=== PATIENT | male | born 1935 | race Caucasian/White ===

== ENCOUNTER → 2016-05-16 | Outpatient (CLI) | payer OTHER | LOC: MMPC 11:11 | PROVIDERS: ATTEND Surgery | DX: K22.2 Esophageal obstruction (principal); Z09 Encounter for follow-up examination after completed treatment for conditions other than malignant neoplasm ==

== ENCOUNTER 2016-09-15 18:10 | Emergency (ER) | payer OTHER ==
[2016-09-15 18:37] VITALS: RESP 20; TEMP 98.2
[2016-09-15 19:39] LABS: BILIRUBIN,URINE NEGATIVE (NEG); COLOR,URINE YELLOW; GLUCOSE, URINE (UA) 250 mg/dL (NEG); NITRATE,URINE NEGATIVE (NEG); OCCULT BLOOD,URINE Trace-lysed (NEG); PROTEIN,URINE TRACE mg/dl (NEG)
[2016-09-15 19:45] LABS: CLARITY,URINE CLOUDY (CLEAR)
[2016-09-15 19:46] LABS: BACTERIA,URINE MANY; SQUAMOUS EPITHELIAL CELL,UR RARE; URINE SAMPLE TYPE CLEAN CATCH URINE; WBC,URINE 40-50
[2016-09-15 20:38] LABS: BASOPHILS # (AUTO) 0.05 10*3/UL; BASOPHILS % (AUTO) 0.8 % (0-1); EOSINOPHILS # (AUTO) 0.12 10*3/UL; EOSINOPHILS % (AUTO) 1.9 % (0-8); HEMATOCRIT 36.2 % (42.0-52.0); HEMOGLOBIN 12.1 g/dL (14.0-18.0); LYMPHOCYTES # (AUTO) 1.17 10*3/uL; MEAN CORPUSCULAR HEMOGLOBIN 31.8 PG (27-31); MEAN CORPUSCULAR HGB CONC 33.4 g/dL (33-37); MEAN CORPUSCULAR VOLUME 95.3 FL (80-90); MEAN PLATELET VOLUME 11.1 FL (7.4-12.2); MONOCYTES # (AUTO) 0.97 10*3/UL (0.3-0.8); MONOCYTES % (AUTO) 15.3 % (5-15); NEUTROPHILS # (AUTO) 4.01 10*3/UL; NEUTROPHILS % (AUTO) 63.3 % (50-80)
[2016-09-15 20:45] LABS: PLATELET MORPHOLOGY COMMENT NORMAL MORPHOLOGY (NORM); RBC MORPHOLOGY COMMENT NORMAL MORPHOLOGY (NORM); WBC MORPHOLOGY COMMENT NORMAL MORPHOLOGY (NORM)
[2016-09-15 20:47] LABS: BUN/CREATININE RATIO 18.46 (6-20); CALCIUM 8.7 mg/dL (8.7-10.7); SERUM ALBUMIN 3.3 g/dL (3.5-4.8)
--- NOTE | 2016-09-15 22:17 | DI ---
CT ABD W/CN AND PELVIS W/CN,09/15/2016 8:55 PM: Clinical History: Back pain with pyuria. Previous Exam: None at this facility. Findings: Multiple helically acquired CT images are obtained through the abdomen and pelvis following the admin istration of 75 cc of Isovue 300, and demonstrate diffuse peripheral vascular calcifications. There is a right lower lobe pneumonia with a right parapneumonic effusion. There is a small amount of subsegmental atelectasis in the left lung base as well. The kidneys demonstrate mild renal cortical thinning without hydronephrosis nor nephrolithiasis. Ther e is prominence of the prostate. The urinary bladder is unremarkable. There is no free air nor free fluid. There is no mesenteric or retroperitoneal lymphadenopathy. Large and small bowel loops are grossly normal. Diffuse degenerative changes of the spine are seen to include fusion at multiple levels which may rep resent ankylosing spondylitis. There are some mild degenerative changes of sacroiliac joints as well. Impression: 1. Right lower lobe pneumonia with a parapneumonic effusion on the right. This is a frequent cause of back pain, but does not explain pyuria. 2. No evidence of renal abscess nor CT evidence of pyelonephritis.
--- NOTE | 2016-09-15 22:23 | DI ---
XR L-SPINE 2-3 VW,09/15/2016 6:50 PM: Clinical History: Left low back pain. Previous Exam: March 24, 2008 Findings: 3 views of the lumbar spine are obtained, and demonstrate stable diffuse degenerative changes with mu ltilevel ankylosis. There is mild SI joint arthropathy. Diffuse degenerative changes of the hips are seen There is a new metallic density overlying the lower abdomen. There is blunting of the right costophre erica angle. No pathologic calcifications are seen. Impression: Stable ankylosis throughout the lumbar spine with some increasing facet arthropathy. Blunting of the right costophrenic angle.
[2016-09-15] MEDS ORDERED: LEVOFLOXACIN 500 MG TABLET PO ONE (22:30)
--- NOTE | 2016-09-16 05:52 | PDOC ---
Back Pain / Injury HPI - General Chief Complaint: Neck / Back Complaint Stated Complaint: LEFT BACK PAIN X 3 DAYS Date Seen by Provider: 09/15/16 Time Seen by Provider: 18:35 Source: Patient Exam Limitations: POSITIVE: No limitations Nurse's Notes Reviewed & Considered: Yes - History of Present Illness Initial Comments: The patient is an 81-year-old male. He presents to the emergency room with a chief complaint of left lower paralumbar back pain radiating into his left buttock. He states his pain is exacerbated by bending and by walking. He states he had a similar episode 3 years ago. He states he has in the past had a "kidney infection", and is concerned that his present symptoms might be related to his kidneys. He has a history of prostatic enlargement. No evidence of recent trauma. No hematuria or dysuria. No fevers or chills. Body Location Affected: REPORTS: Back Timing: REPORTS: Gradual, Getting Worse Duration: >24 hours (3 days, approximately) Severity: Moderate Quality: REPORTS: "Pain" Context: REPORTS: Standing, Activity, Lifting (Exacerbated by lifting, bending, turning and walking), Turning, Bending. DENIES: Sitting, Emotional stress, Coughing, Out of Country Travel, Bad Food, Recent Trauma, Recent Surgery, Sleep , Rest, Fall, Near Fall Location at Time of Onset: REPORTS: Home Modifying Factors: improves with: Movement, Walking. worse with: Nothing, Analgesics, Antacids, Breathing, Coughing, Defecating, Vomiting, Eating, Exercise, Lying down, Urinating, Palpation, Rest, Upright Position, Remaining Still, Other Associated Symptoms: REPORTS: Back pain. DENIES: Bloody Emesis, Chest pain, Coffee Grounds Emesis, Chills, Diaphoresis, Fever, Fatigue, Headache, Heartburn , Loss of Appetite, Nausea, Rash, Shortness of breath, Swelling/mass in abdomen , Syncope, Testicular Pain, Vomiting, Weakness, Grossly Bloody Diarrhea, Constipation, Diarrhea, Dysuria, Incontinent Stool, Incontinent Urine, Mucous Diarrhea, Difficulty Walking, Numbness Similar Symptoms Previously: Yes (as above) Recent Care Received: REPORTS: Denies Any Prior Injuries Related to Current Complaint?: No - Patient Home Medications Home Medications: Home Medications Aspirin [Aspir 81] 81 mg ORAL QD tab 08/07/14 Tamsulosin HCl 0.4 mg PO QHS #90 cap 12/23/15 Finasteride 5 mg PO DAILY #90 tab 12/25/15 Atorvastatin Calcium 1 tab PO QD #90 tab 04/20/16 Sitagliptin Phos/Metformin HCl [Janumet 50-1,000 mg Tablet] 1 tab PO QD tab Esomeprazole Magnesium [Nexium] 40 mg PO DAILY #14 capsule. 04/28/16 Levofloxacin [Levaquin] 500 mg PO DAILY #9 tablet 09/15/16 - Patient Allergies Allergies/Adverse Reactions: Allergies Allergy/AdvReac Type Severity Reaction Status Date / Time beer Allergy Mild RASH Uncoded 09/15/16 18:26 Past Medical History - heen HEENT History: Denies History, Dentures/Partials Cardiovascular History: Hyperlipidemia Additional Cardiovasular History: CABG 2 VESSEL 2012 Respiratory History: Denies History Gastrointestinal History: GERD Additional Gastrointestinal History: ESOPHAGEAL STRICTURES Additional Genitourinary History: BPH Endocrine History: Type 2 Diabetes (oral) Musculoskeletal History: Back Injury, Osteoarthritis Prosthesis or Implant: No Neurological History: Dementia, Alzheimer's Blood Disorders: Denies History Psychiatric History: Depression History of Sexually Transmitted Diseases: No Male Reproductive History: Denies History In Past Year Been Physically Harmed or Verbally Threatened: No History of MDRO: No History of Other Communicable Diseases: No Tobacco Use: Never Smoker Alcohol Use: None Substance Use Type: None Previous Surgical History: Yes Type / Date of Surgery: COLONOSCOPY/ CABG 2 VESSEL 2014/ EGD WITH DILATION/ LEFT LEG ORIF/ VASECTOMY Anesthesia Reactions: No Malignant Hyperthermia: No Significant Family History: Cancer Past Medical History Reviewed: Reviewed - No Changes ROS - Limitations ROS Limitations: No Limitations Constitution: REPORTS: Denies Symptoms Cardiovascular: REPORTS: Denies Cardiac Symptoms Respiratory: REPORTS: Denies Resp Symptoms Neurological: REPORTS: Denies Neuro Symptoms Gastrointestinal: REPORTS: Denies GI Symptoms Endocrine: REPORTS: Denies Symptoms Musculoskeletal: REPORTS: Back Pain Genitourinary: REPORTS: Difficulty Urinating (Chronically due to prostatic hypertrophy) Eyes: REPORTS: Denies Symptoms ENT: REPORTS: Denies Symptoms Skin: REPORTS: Denies Skin Symptoms Lympathic: REPORTS: Denies Lympathic Symptoms Immunologic: POSITIVE: Denies Symptoms Psychiatric: POSITIVE: Denies Psych Symptoms Back Physical Assessment - General Appearance General Appearance: REPORTS: Alert, Cooperative, No Acute Distress, No Evidence of Trauma - HEENT HEENT: POSITIVE: Head Inspection Nml, Eyes Inspection Nml, Ears Inspection Nml, Nose Inspection Nml, Oral/Dental Inspect. Nml, Pharynx Inspect. Nml, PERRL, EOMI - Pupil Size Pupil Size: 3 mm: Bilateral - Neck Neck: POSITIVE: Non Tender, Painless ROM, Trachea Midline, Nexus Criteria Negative - Respiratory / CVS Respiratory / CVS: POSITIVE: Chest Non Tender, No Ecchymosis, Breath Sounds Normal, No Respiratory Distress, Heart Sounds Normal, Regular Rate/Rhythm - Abdomen Abdomen: Soft: (All Quadrants), Normal Bowel Sounds: (All Quadrants), Denies Tenderness: (All Quadrants), No Splenomegaly: (All Quadrants), No Hepatomegaly: (All Quadrants), No Guarding: (All Quadrants), No Rebound: (All Quadrants), No Palpable Pulse: (All Quadrants), No Palpabale Mass: (All Quadrants), No Distention: (All Quadrants), No Rigidity: (All Quadrants) - Back Back: REPORTS: No Vertebral Tenderness, Limited ROM, See Diagram. DENIES: No CVA Tenderness, Non Tender (Some tenderness on palpation over left lower paralumbar area and left hip), Painless ROM (Bending produces pain left paralumbar area), Vertebral Pt. Tenderness, CVA Tenderness (R), CVA Tenderness ( L), Muscle Spasm - Skin Skin: REPORTS: Intact, Normal For Race, Warm, Dry, No Rash - Extremities Extremity Assessment: Non-Tender: (ALL), Normal ROM: (ALL), No Edema: (ALL), Normal Inspection: (ALL), No Swelling: (ALL) Musculoskeletal: REPORTS: Back Pain Peripheral Pulses: Radial (R): 2+, Radial (L): 2+, Dorsalis-pedis (R): 2+, Dorsalis-pedis (L): 2+ - Neurological / Psychological Neuro / Psych: POSITIVE: Oriented X3, die baker Normal As Tested, Motor Normal, Sensation Normal, Mood Appropriate, Affect Appropriate, Reflexes Normal Reflexes: Patellar (R): 2+, Patellar (L): 2+ Images - Complete Complete: 1 - Area of described pain Back Progress - Results Reviewed by me Xrays/CTs/US Reviewed: Yes Discussed with Radiologist: Yes Radiology Findings: CT scan abdomen and pelvis shows degenerative changes in the lumbar spine; no hydronephrosis or stones or other intra-abdominal or pelvic pathology. Bladder scan shows post void residual of 160 mL. Lab Results Reviewed: Yes (some white blood cells and urinalysis) Lab Results:: Laboratory Results 09/15/16 09/15/16 Range/Units 18:49 20:05 WBC 6.33 (4.8-10.8) 10^3/uL RBC 3.80 L (4.70-6.10) 10^6/uL Hgb 12.1 L (14.0-18.0) g/dL Hct 36.2 L (42.0-52.0) % MCV 95.3 H (80-90) FL MCH 31.8 H (27-31) PG MCHC 33.4 (33-37) g/dL RDW Std Deviation 43.7 (39-50) fL RDW Coeff of Raul 13.1 (11.5-14.5) % Plt Count 177 (140-350) 10*3/uL MPV 11.1 (7.4-12.2) FL Immature Gran % (Auto) 0.2 (0-5) % Neut % (Auto) 63.3 (50-80) % Lymph % (Auto) 18.5 (10-50) % [place] % (Auto) 15.3 H (5-15) % Eos % (Auto) 1.9 (0-8) % Baso % (Auto) 0.8 (0-1) % Immature Gran # (Auto) 0.01 10*3/UL Neut # (Auto) 4.01 10*3/UL Lymph # (Auto) 1.17 10*3/uL [place] # (Auto) 0.97 H (0.3-0.8) 10*3/UL Eos # (Auto) 0.12 10*3/UL Baso # (Auto) 0.05 10*3/UL WBC Morphology Comment Normal morphology (NORM) Plt Morphology Comment Normal morphology (NORM) RBC Morph Comment Normal morphology (NORM) Sodium 139 (135-145) meq/L Potassium 4.2 (3.8-5.2) meq/L Chloride 104 (98-112) meq/L Carbon Dioxide 26 (23-33) meq/L Anion Gap 9 (5-20) BUN 24 H (7-22) mg/dL Creatinine 1.3 (0.70-1.50) mg/dL Estimated GFR (>60 ml/min/1.73m(2)) BUN/Creatinine Ratio 18.46 (6-20) Glucose 148 H (78-110) mg/dL Calculated Osmolality 294.0 H (267-292) mOsm/kg Calcium 8.7 (8.7-10.7) mg/dL Total Bilirubin 0.6 (0.3-1.2) mg/dL AST 20 L (21-57) IU/L ALT 36 (21-72) IU/L Alkaline Phosphatase 83 (38-126) IU/L Total Protein 6.8 (6.1-8.0) g/dL Albumin 3.3 L (3.5-4.8) g/dL Globulin 3.5 (2.50-4.10) g/dL Albumin/Globulin Ratio 0.90 L (1.3-2.0) mg/g Ur Collection Type Clean catch urine Urine Color Yellow Urine Clarity Cloudy (CLEAR) Urine pH 5.0 (5.0-8.5) Ur Specific [place] 1.015 (1.005-1.030) Urine Protein Trace (NEG) mg/dl Urine Glucose (UA) 250 (NEG) mg/dL Urine Ketones Trace (NEG) Urine Occult Blood Trace-lysed H (NEG) Urine Nitrate Negative (NEG) Urine Bilirubin Negative (NEG) Urine Urobilinogen 1.0 (0.2) EU/dL Ur Leukocyte Esterase Moderate (NEG) Urine RBC 3-4 (NONE) /hpf Urine WBC 40-50 (NONE) Ur Squamous Epith Cells Rare (NONE) Ur Renal Epithelial Cell None (NONE) Urine Crystals None Urine Bacteria Many (NONE) Urine Casts None (NONE) Urine Mucus None (NONE) Urine Trichomonas None (NONE) Urine Yeast None (NONE) - Patient's Progress Pain Medication Addressed: POSITIVE: Yes (Recommended Tylenol) School/Work Release Addressed: POSITIVE: Not Applicable Re-Examine Time: 22:25 Re-Examine Comment: Advised patient that I believe his back complaints or musculoskeletal. No evidence of renal problems, although the patient does have some white blood cells in his urine, which is likely secondary to his prostatic hypertrophy with possible cystitis. Status: POSITIVE: Unchanged, Re-Examined - Consult Counseled: POSITIVE: Patient, RE: Lab Results, RE: Radiology Results, RE: DX, RE : Need for F/U Patient Care Time - Estimated PCT Patient Care Time (In Minutes): 50 Vital Signs - VS Reviewed Vital Signs Reviewed: Yes Discharge Clinical Impression: Acute low back pain, Sciatica associated with disorder of lumbar spine, UTI ( urinary tract infection) Discharge Disposition: Discharged to Home Condition: Stable Prescriptions / Orders: Levofloxacin [Levaquin] 500 mg PO DAILY #9 tablet Patient Instructions Given at Discharge: Urinary Tract Infection in Men (ED), Low Back Strain (ED) Additional Instructions: I believe you have a bladder infection. Your back pain, I believe, is not coming from a kidney infection, but rather from degenerative joint disease in the lower back. Please take Levaquin, one daily until gone. Tylenol for your back discomfort. Follow-up with your primary care provider. Return here anytime if condition worsens in any way. Follow Up With: OMERO ORNELAS [Primary Care Provider] - (Instructions as above. Follow-up with your primary care provider. Return here anytime if condition worsens in any way.)
== END 2016-09-15 22:39 | disposition home or self-care (01) ==
LOC: ER 18:10
DX: N40.1 Benign prostatic hyperplasia with lower urinary tract symptoms (principal); M51.17 Intervertebral disc disorders with radiculopathy, lumbosacral region; M54.5 Low back pain; E11.9 Type 2 diabetes mellitus without complications
CPT/HCPCS: 72100; 74177; 80053; 81001; 85025; 87077; 87088; 87186; 99283

== ENCOUNTER → 2016-09-22 | Outpatient (CLI) | payer OTHER | LOC: MMPC 09:00 | PROVIDERS: ATTEND Family Medicine | DX: M54.5 Low back pain (principal); Z87.440 Personal history of urinary (tract) infections; Z87.01 Personal history of pneumonia (recurrent) | CPT/HCPCS: 99214; G0463 ==

== ENCOUNTER 2018-05-20 16:40 | Observation (INO) ==
[2018-05-20] MEDS ORDERED: LORazepam 2 MG/1 ML VIAL IVP ONE (17:07)
[2018-05-20] MEDS ORDERED: ONDANSETRON 4 MG/2 ML VIAL IVP ONE (17:07)
[2018-05-20] MEDS ORDERED: Sodium Chloride 0.9% 1,000 ML PRIMARY IV ONE (17:07)
[2018-05-20] MEDS ORDERED: Metoclopramide Inj 10 MG/2 ML VIAL IVP ONE (17:07)
[2018-05-20] MEDS ORDERED: GLUCAGON EMERGENCY KIT 1 MG KIT IVP ONE (17:07)
[2018-05-20 17:13] LABS: BASOPHILS # (AUTO) 0.03 10*3/UL; BASOPHILS % (AUTO) 0.4 % (0-1); EOSINOPHILS # (AUTO) 0.09 10*3/UL; EOSINOPHILS % (AUTO) 1.3 % (0-8); Hematocrit [HCT] 40.6 % (42.0-52.0); Hemoglobin [HGB] 13.8 g/dL (14.0-18.0); LYMPHOCYTES # (AUTO) 0.82 10*3/uL; MEAN CORPUSCULAR HEMOGLOBIN 32.2 PG (27-31); MEAN CORPUSCULAR VOLUME 94.9 FL (80-90); MEAN PLATELET VOLUME 10.9 FL (7.4-12.2); MONOCYTES # (AUTO) 0.66 10*3/UL (0.3-0.8); MONOCYTES % (AUTO) 9.9 % (5-15); NEUTROPHILS % (AUTO) 76.2 % (50-80); RED BLOOD COUNT 4.28 10^6/uL (4.70-6.10)
--- NOTE | 2018-05-20 17:14 | PDOC ---
Gen Adult / Medical Screen HPI - General Chief Complaint: General Medical Stated Complaint: something stuck in throat Date Seen by Provider: 05/20/18 Time Seen by Provider: 17:06 Source: POSITIVE: Patient Exam Limitations: POSITIVE: No limitations Nurse's Notes Reviewed & Considered: Yes - Indicators Temperature Between 95 and 101 Degrees: Yes Respirations Between 12 and 20: Yes Blood Pressure Between 100-165 (sys) and 60-100 (cantrell): No (187/95) Pulse Range Between 60-105 (100 for age > 60 years): Yes Severe Pain (Greater than 5/10 Reported): No Chest or Abdominal Pain: Yes Inability to Walk: No Pt Reports Active High Risk Cond. (TB/Hepatitis/HIV/Chemo): No - History of Present Illness Initial Comments: This is a well-developed, well-nourished, very pleasant, 82-year-old male, complaining of abdominal pain with vomiting. Patient was eating steak on night and subsequently developed difficulty managing his secretions. Since that time he has been able to eat or drink nothing without immediately following it out. He states he has remained in bed until his son saw him this afternoon and brought him in for evaluation here in the emergency room. Patient denies any headache, no sore throat, no chest pain but he does have some shortness of breath, denies diarrhea but he does have nausea and vomiting. Patient denies any myalgias or arthralgias, no hematuria or dysuria, no rashes. Patient has a history of esophageal strictures with multiple esophageal dilatation. Last dilatation was in January 2018. Body Location Affected: REPORTS: Abdomen Timing: REPORTS: Abrupt Duration: <1 week Recent Care Received: REPORTS: Denies Any Prior Injuries Related to Current Complaint?: No - Patient Home Medications Home Medications: Home Medications tamsulosin 0.4 mg capsule 0.4 mg PO QHS #90 cap 06/08/17 - Patient Allergies Allergies/Adverse Reactions: Allergies Allergy/AdvReac Type Severity Reaction Status Date / Time beer Allergy Mild RASH Uncoded 05/20/18 16:48 Past Medical History - heen HEENT History: Denies History, Dentures/Partials Additional HEENT History: uppers Cardiovascular History: CAD, Hyperlipidemia Additional Cardiovasular History: CABG 2 VESSEL 2012 Respiratory History: Other (please comment) Additional Respiratory History: chronic cough ever since last EGD. BACTERIAL PNEUMONIA Gastrointestinal History: GERD Additional Gastrointestinal History: ESOPHAGEAL STRICTURES Genitourinary History: Recurrent UTI Additional Genitourinary History: BPH. KIDNEY INJURY Endocrine History: Type 2 Diabetes (oral) Musculoskeletal History: Back Injury, Osteoarthritis, Other (please comment) Prosthesis or Implant: No Additional Musculoskeletal History: SCIATICA. CHRONIC LOW BACK PAIN Neurological History: Dementia, Alzheimer's, Motion Sickness Blood Disorders: Denies History Psychiatric History: Depression History of Sexually Transmitted Diseases: No In Past Year Been Physically Harmed or Verbally Threatened: No History of MDRO: No History of Other Communicable Diseases: No Tobacco Use: Former Smoker Alcohol Use: None In the Past 12 Months, Have Used or Abuse Any Substance: None Previous Surgical History: Yes Type / Date of Surgery: COLONOSCOPY/ CABG 2 VESSEL 2015/ EGD WITH DILATION/ LEFT LEG ORIF/ VASECTOMY Anesthesia Reactions: No Malignant Hyperthermia: No Significant Family History: Asthma, Cancer ROS - Limitations ROS Limitations: No Limitations Constitution: REPORTS: Denies Symptoms Cardiovascular: REPORTS: Denies Cardiac Symptoms Respiratory: REPORTS: Shortness Of Breath Neurological: REPORTS: Denies Neuro Symptoms Gastrointestinal: REPORTS: Abdominal Pain, Nausea, Vomitting Endocrine: REPORTS: Denies Symptoms Musculoskeletal: REPORTS: Denies MS Symptoms Genitourinary: REPORTS: Denies Symptoms Eyes: REPORTS: Denies Symptoms ENT: REPORTS: Denies Symptoms Skin: REPORTS: Denies Skin Symptoms Lympathic: REPORTS: Denies Lympathic Symptoms Immunologic: POSITIVE: Denies Symptoms Psychiatric: POSITIVE: Denies Psych Symptoms Gen Adult/Medical Screen Exam - General Appearance General Appearance: POSITIVE: Alert, Cooperative, No Acute Distress, No Evidence of Trauma - HEENT HEENT: POSITIVE: Head Inspection Nml, Eyes Inspection Nml, Ears Inspection Nml, Nose Inspection Nml, Oral/Dental Inspect. Nml, Pharynx Inspect. Nml, PERRL, EOMI - Pupils Pupil Size: 5 mm: Bilateral - Neck Neck: POSITIVE: Normal Inspection - Respiratory Respiratory: POSITIVE: No Respiratory Distress, Breath Sounds Normal, Chest Non- Tender - Cardiovascular Cardiovascular: POSITIVE: Regular Rate & Rhythm, No Murmur, No Gallop, PMI Normal Peripheral Pulses: Radial (L): 4+ (radial arteries harvested for CABG, ulnar artery+4) - Abdomen Abdomen: Soft: (All Quadrants), Normal Bowel Sounds: (All Quadrants), Denies Tenderness: (All Quadrants), No Splenomegaly: (All Quadrants), No Hepatomegaly: (All Quadrants), No Guarding: (All Quadrants), No Rebound: (All Quadrants), No Palpable Pulse: (All Quadrants), No Palpabale Mass: (All Quadrants), No Disten tion: (All Quadrants), No Rigidity: (All Quadrants) - Back Back: POSITIVE: Normal Inspection - Neurological / Psychological Mental Status: POSITIVE: Mood Normal, Affect Normal Orientation: POSITIVE: Oriented x 3 - Skin Skin: POSITIVE: Normal Color, Warm, Dry, No Rash - Extremities Extremity: Non-Tender: (All Extremities), Normal ROM: (All Extremities), Normal Inspection: (All Extremities), Pelvis Stable: (All Extremities) Procedures - Laceration/Wound Repair Did patient have a laceration repair: No Gen Adlt/Medical Scrn Progress - Results Reviewed by me Xrays/CTs/US Reviewed by me: Yes Discussed with Radiologist: Yes Lab Results Reviewed by Me: Yes CBC and BMP: 05/20/18 17:05 05/20/18 17:05 Lab Results:: Laboratory Results 05/20/18 05/20/18 17:05 17:05 WBC 6.70 RBC 4.28 L Hgb 13.8 L Hct 40.6 L MCV 94.9 H MCH 32.2 H MCHC 34.0 RDW Std Deviation 45.8 RDW Coeff of Raul 13.8 Plt Count 243 MPV 10.9 Immature Gran % (Auto) 0 Neut % (Auto) 76.2 Lymph % (Auto) 12.2 [place] % (Auto) 9.9 Eos % (Auto) 1.3 Baso % (Auto) 0.4 Immature Gran # (Auto) 0 Neut # (Auto) 5.10 Lymph # (Auto) 0.82 [place] # (Auto) 0.66 Eos # (Auto) 0.09 Baso # (Auto) 0.03 WBC Morphology Comment Normal morphology Plt Morphology Comment Normal morphology RBC Morph Comment Normal morphology Sodium 143 Potassium 4.1 Chloride 105 Carbon Dioxide 23 Anion Gap 15 BUN 32 H Creatinine 1.1 BUN/Creatinine Ratio 29.09 H Glucose 108 Calculated Osmolality 303.0 H Calcium 9.1 Magnesium 2.2 Total Bilirubin 0.9 AST 28 ALT 29 Alkaline Phosphatase 118 C-Reactive Protein 4.2 H Total Protein 7.8 Albumin 4.2 Globulin 3.6 Albumin/Globulin Ratio 1.10 L - Patient's Progress Pain Medication Addressed: POSITIVE: No Re-Examine Time: 20:03 Status: POSITIVE: Unchanged MDM / ED Course: Patient was evaluated, an IV started, blood drawn and sent to the lab for studies, CT examination of his abdomen was obtained. Findings: CBC shows an anemia with hemoglobin of 13.8 and hematocrit 40.6. CMP shows a BUN of 32. CT of his abdomen shows no acute intra-abdominal abnormalities, chronic right loculated pleural effusion, I) spondylitis of the lumbar spine. CRP is elevated at 4.2. Assessment: Esophageal stricture with vomiting. Plan: - Consult Consult (If Yes, Name of Consulting MD & Time Called): Yes (Dr. Diehl, Dr Taylor) Consulting MD will see pt:: POSITIVE: [facility] [place] Admit Counseled: POSITIVE: Patient, Family, RE: Lab Results, RE: Radiology Results, RE: DX, RE: Need for F/U Patient Care Time - Estimated PCT Patient Care Time (In Minutes): 45 Vital Signs - Recent Vital Signs Vital Signs: Vital Signs (Last 8 hours) Temp Pulse Resp BP Pulse Ox 05/20/18 16:50 98 F 85 16 187/95 96 - VS Reviewed Vital Signs Reviewed: Yes Discharge Clinical Impression: Vomiting, Dehydration Discharge Disposition: Admit to Observation Condition: Fair Patient Instructions Given at Discharge: Dehydration (ED) Follow Up With: OMERO ORNELAS [Primary Care Provider] -
[2018-05-20 17:15] LABS: PLATELET MORPHOLOGY COMMENT NORMAL MORPHOLOGY (NORM); RBC MORPHOLOGY COMMENT NORMAL MORPHOLOGY (NORM); WBC MORPHOLOGY COMMENT NORMAL MORPHOLOGY (NORM)
[2018-05-20 17:25] LABS: BLOOD UREA NITROGEN 32 mg/dL (7-22); BUN/CREATININE RATIO 29.09 (6-20); SERUM ALBUMIN 4.2 g/dL (3.5-4.8)
--- NOTE | 2018-05-20 19:03 | DI ---
CT ABDOMEN SCAN WITH IV CONTRAST, 05/20/2018 5:15 PM : Clinical History: Vomiting. Abdominal pain. Previous Exam: 09/15/2016. Comparison is also made with a CT scan of the chest from 12/05/2017. IV Contrast: 75 mL of Isovue 300. Oral Contrast: No oral contrast ordered. Rectal Contrast: No rectal contrast ordered. Lungs: Chronic right-sided loculated pleural effusion with chronic right lower lobe atelectasis with probable scarring. Punctate calcifications are present in the collapsed right lower lobe. These findi ngs have not changed from the previous CT abdomen scan of 09/15/2016, and a CT scan of the chest from 12/05/2017. Liver: Normal. Gallbladder: Grossly normal. Adrenal Glands: Normal. Spleen: Normal. Pancreas: Normal. Kidneys: Normal size, shape, position and contour. No hydronephrosis or hydroureter. No renal or uret eral calculi. Masses: None. Lymph Nodes: Normal. Ascites: No ascites. Free Air: None. Spine: The lower thoracic spine has a "bamboo" appearance classic for ankylosing spondylitis. Osteopo rosis. READIN. Normal CT abdomen scan. 2. Chronic right-sided loculated pleural effusion with presumed organized right lower lobe atelectas is. 3. Ankylosing spondylitis. CT PELVIS SCAN WITH IV CONTRAST, 05/20/2018 5:15 PM: Clinical History: See above. Previous Exam: 09/15/2016. Contrast: Same bolus used for CT scans of the abdomen. Masses: No masses or enhancing lesions. Ascites: None. Free Air: None. Lymph Nodes: No adenopathy. Appendix: Not identified. No cecal or right lower quadrant inflammatory mass. Small Bowel: Normal small bowel, terminal ileum, and ileocecal valve. Colon: Normal. No evidence of colitis. Bladder: Normal. Marked prostatic enlargement. Hernias: None. Bony Pelvis: Intact sacrum, pelvic bones, and hips. Osteoporosis. Ankylosis of the lower thoracic and upper lumbar apophyseal joints. Bilateral sacroiliitis. READIN. Normal CT scan of the pelvis with IV contrast. 2. Ankylosing spondylitis with bilateral sacroiliitis. Osteoporosis.
--- NOTE | 2018-05-20 20:29 | PDOC ---
HPI - History of Present Illness History of Present Illness: This very nice 82-year-old gentleman presented to the ER complaining of abdominal pain and vomiting. Patient has not not had any fluids since Monday and basically after he was having difficulty swallowing looks very dehydrated patient has a history of esophageal strictures with multiple dilatations last one in January 2018 general surgery was consult did express no need for EGD this evening will be seen again tomorrow and at that point decide patient did was able to the swallow some water but subsequently 5 minutes later started coughing and feeling nauseated Past Medical History Medical History: BPH Surgical History: BPH, esophageal strictures Tobacco Use: Former Smoker In the Past 12 Months, Have Used or Abuse Any of the Following Substance: None Medication / Allergies Home Medications: Home Medications Medication Instructions Recorded Confirmed Type tamsulosin 0.4 mg capsule 0.4 mg PO QHS #90 cap 06/08/17 05/20/18 Rx Allergies/Adverse Reactions: Allergies Allergy/AdvReac Type Severity Reaction Status Date / Time beer Allergy Mild RASH Uncoded 05/20/18 16:48 Review of Systems - Review of Systems All Systems: Reviewed & No Additional Complaints Except as Stated - Constitutional Constitutional: REPORTS: General Health Fair - Respiratory Respiratory: DENIES: Negative System Review, Cough, Sputum, Dyspnea At Rest, Dyspnea with Exertion, Pleuritic Pain, Hemoptysis, Wheezing, Other, See HPI - Cardiovascular Cardiovascular: DENIES: Negative System Review, Chest Pain, Edema, Syncope, Palpitations, Orthopnea, Paroxysmal Nocturnal Dyspnea, Other, See HPI - Gastrointestinal Gastrointestinal / Abdominal: REPORTS: Nausea, Vomiting - Neurological Neurologic: DENIES: Headache, Tremors, Weakness, Seizures, Dizziness Exam - Vitals Vital Signs: Vital Signs Temperature 98 F Temperature Source Temporal Artery Scan Pulse Rate [Pulse Oximeter] 85 Respiratory Rate 16 Blood Pressure [Left Arm] 187/95 Pulse Ox 96 Oxygen Delivery Method Room Air Height 5 ft 8 in Weight 135 lb - General General Appearance: No Acute Distress, Cooperative - Neck Neck Exam: Normal Inspection, Full ROM, No Tenderness, No Lymphadenopathy, No Thyromegaly, JVP is not Raised - Respiratory Respiratory Exam: POSITIVE: Clear to Auscultation - Bilaterally, Breathing Non Labored, Normal To Percussion, Normal to Percussion and Palpation - Cardiovascular Cardiovascular Exam: POSITIVE: RRR, No Murmur, No Clicks, No Gallops, No Rubs, PMI Non-Displaced - GI/Abdominal GI/Abdominal Exam: POSITIVE: Normal Bowel Sounds, Non Tender, Non Distended, Soft, No Masses, No Hepatomegaly, No Splenomegaly, No Organomegaly - Extremities Extremities Exam: POSITIVE: No Clubbing Present, No Edema Present, No Cyanosis Present - Neurological Neurological Exam: POSITIVE: Alert, Oriented x 3, No Facial Droop, Speech Intact / Clear, Moves All Extremities Equally Results - Labs CBC and BMP: 05/20/18 17:05 05/20/18 17:05 Assessment and Plan - Patient Problems (1) Dehydration Current Visit: Yes Status: Acute Code(s): E86.0 - Dehydration (2) Vomiting Current Visit: Yes Status: Acute Code(s): R11.10 - Vomiting, unspecified - Assessment / Plan Additional Assessment/Plan Details: #1 vomiting with cough most likely patient had could have another esophageal stricture considering his past history the further surgery if the do this as an inpatient or outpatient nevertheless patient is not able to drink or eat because of cough I would lean towards doing an EGD as an inpatient. Discussed this with Dr. Childress and which will discuss it with Dr. jayjay Baltazar #2 dehydration IV fluids with the potassium repeat labs in a.m.
[2018-05-20] MEDS ORDERED: ONDANSETRON 4 MG/2 ML VIAL IVP PRN (20:48)
[2018-05-20] MEDS ORDERED: LIDOCAINE W/ SODIUM BICARB 0.5 ML SYR SUBD PRN (20:48)
[2018-05-20] MEDS ORDERED: TAMSULOSIN 0.4 MG CAPSULE PO SCH (21:00)
[2018-05-21 05:18] LABS: BLOOD UREA NITROGEN 26 mg/dL (7-22); BUN/CREATININE RATIO 28.88 (6-20); SERUM ALBUMIN 3.2 g/dL (3.5-4.8)
--- NOTE | 2018-05-21 10:26 | PDOC(PROG) ---
Interval History: Patient is doing great back to his normal self well-hydrated we had the bedside swallow eval with a sip of water patient started choking on the water. Most likely will need a swallow eval and if not possible EGD Objective : Data - Labs CBC and BMP: 05/20/18 17:05 05/21/18 04:27 Objective : Exam - General General Appearance: Cooperative - Respiratory Respiratory Exam: Clear to Auscultation - Bilaterally, Breathing Non Labored, Normal To Percussion, Normal to Percussion and Palpation - Cardiovascular Cardiovascular Exam: RRR, No Murmur, No Clicks, No Gallops, No Rubs, PMI Non- Displaced - GI/Abdominal GI/Abdominal Exam: Normal Bowel Sounds, Non Tender, Non Distended, Soft, No Masses, No Hepatomegaly, No Splenomegaly, No Organomegaly Assessment and Plan - Patient Problems (1) Dehydration Current Visit: Yes Status: Acute Comment: Resolved doing great Code(s): E86.0 - Dehydration (2) Vomiting Current Visit: Yes Status: Acute Comment: This is resolved as well Code(s): R11.10 - Vomiting, unspecified (3) Dysphagia Current Visit: Yes Status: Acute Comment: I ordered swallow eval could be a stricture surgery on consult awaiting for the surgeons evaluation for possible EGD patient unable to eat or drink Code(s): R13.10 - Dysphagia, unspecified
--- NOTE | 2018-05-21 14:59 | MINORPROC ---
Outpatient History & Physical Chief Complaint: Cannot swallow Present Illness: 82-year-old male who was eating steak and had some the stuck in his throat on 05/17/2017. Patient was initially admitted. Patient had a modified barium swallow which shows a obstruction the looks like a tight stricture the distal GE junction. Patient was dilated to 20 mm in May 2017. Biopsy that time showed no evidence of cancer History: HEENT: WNL, Respiratory: WNL, Cardiovascular: WNL, Gastrointestinal: W NL Physical Exam: Chest/Lungs: WNL, Heart: WNL Home Medications: Home Medications Medication Instructions Recorded Confirmed Type tamsulosin 0.4 mg capsule 0.4 mg PO QHS #90 cap 06/08/17 05/20/18 Rx Allergies/Adverse Reactions: Allergies Allergy/AdvReac Type Severity Reaction Status Date / Time beer Allergy Mild RASH Uncoded 05/21/18 06:39 Impression / Plan: Esophageal stricture with obstruction. Would recommend the patient have an EGD with dilation. The risk and potential complications of the procedure were discussed with the patient.. They understood this. Also discussed alternatives diagnostic and treatment options. Will get the EGD with dilation set up at the first available date. Patient does understand is more risks associated with the barium in there. I cannot visualize anything we will not proceed with procedure. CPT 43399 Transfusion: Transfusion Not Anticipated Anesthesia Plans: Sedation ASA Class: Class 2 : Mild Systemic Disease
[2018-05-21] MEDS ORDERED: Lactated Ringers 1,000 ML PRIMARY IV ONE (15:05)
[2018-05-21] MEDS ORDERED: PROPOFOL 10 MG/1 ML (200 MG/20 ML) VIAL IV ONE (15:10)
[2018-05-21] MEDS ORDERED: LIDOCAINE 2% VISCOUS(20 MG/1 ML) - 15 ML UD CUP PO ONE (15:10)
--- NOTE | 2018-05-21 15:31 | GEN.OPNOTE ---
EGD Operative Note Surgery Date: 05/21/18 Preoperative Diagnosis: Esophageal obstruction Postoperative Diagnosis: Foreign body in the distal esophagus. Benign esophageal stricture Procedure: EGD with removal of foreign body Surgeon: Sanya Santos MD Anesthesia Provider: Serge Field CRNA Anesthesia Type: MAC Indications: On 05/17/2017. Patient had a piece of food stuck in his throat. He has not been able to clear secretions since that time. Parents are study shows an obstruction. Patient had us EGD with dilation and May 2017. At that time he had a 20 mm dilation. Biopsies were benign. Findings: Esophagus: There was video EGD scope 7 posterior pharynx. Patient a lot of secretions and form body in the distal esophagus. I was able aspirate most of these out. Then with gentle pneumatic pressure is able to get the food bolus push beyond the GE junction. He had what appeared to be a benign stricture. Because of the timing and the fact that he had barium I did not want do a biopsy at this time is a risk of perforation. GE Junction : Proximal be 40 cm Fundus : Scope was flexor on itself revealing hiatal hernia Body : Mild inflammatory condition Prepyloric : Prepyloric areas normal Small Intestine : First and second portion the duodenum normal A lubricated flexible upper endoscope was inserted and passed through the esophagus and stomach into the duodenum. Endoscopy Procedures - Endoscopy Procedures Primary Endoscopy Procedure: 87884 : EGD w/FB Removal
--- NOTE | 2018-05-21 15:43 | CRNA.PROGR ---
Anesthesia Time - Procedure/Recovery Time Start Date: 05/21/18 End Date: 05/21/18 Anesthesia : Time In: 15:10 Anesthesia : Time Out: 15:30 Anesthesia : Total Time: 20 - Total Anesthesia Time Total Anesthesia Time (minutes): 20 - Other Weight: 54.34 kg Height: 5 ft 8 in Body Mass Index (BMI): 18.2 Physical Status: P2 Anesthesia Type: MAC
--- NOTE | 2018-05-21 15:43 | CRNA.PROGR ---
Post Anesthesia Phase II - Post Anesthesia Phase II Patient Stable and Discharged To: Phase II Care Assumed By Surgeon: Hang Santos MD Temperature: 98.8 F Pulse Rate: 70 Respiratory Rate: 18 Blood Pressure: 148/79 Pulse Ox: 92 Total Elieser Score at Discharge: 9 Post Anesthesia Discharge Criteria Met: Yes
--- NOTE | 2018-05-21 16:24 | DCSUMMARY ---
Hospitalization Summary Hospital Course: Final Discharge Diagnosis: Current Visit Problems Problem Status Onset Code Vomiting Acute R11.10 Dehydration Acute E86.0 Dysphagia Acute R13.10 Diagnostic Data, Laboratory Data, and Procedures of Signifigance: Laboratory Results 05/20/18 05/20/18 05/21/18 17:05 17:05 04:27 WBC 6.70 RBC 4.28 L Hgb 13.8 L Hct 40.6 L MCV 94.9 H MCH 32.2 H MCHC 34.0 RDW Std Deviation 45.8 RDW Coeff of Raul 13.8 Plt Count 243 MPV 10.9 Immature Gran % (Auto) 0 Neut % (Auto) 76.2 Lymph % (Auto) 12.2 [place] % (Auto) 9.9 Eos % (Auto) 1.3 Baso % (Auto) 0.4 Immature Gran # (Auto) 0 Neut # (Auto) 5.10 Lymph # (Auto) 0.82 [place] # (Auto) 0.66 Eos # (Auto) 0.09 Baso # (Auto) 0.03 WBC Morphology Comment Normal morphology Plt Morphology Comment Normal morphology RBC Morph Comment Normal morphology Sodium 143 141 Potassium 4.1 4.0 Chloride 105 107 Carbon Dioxide 23 25 Anion Gap 15 9 BUN 32 H 26 H Creatinine 1.1 0.9 BUN/Creatinine Ratio 29.09 H 28.88 H Glucose 108 63 L Calculated Osmolality 303.0 H 294.0 H Calcium 9.1 8.2 L Magnesium 2.2 Total Bilirubin 0.9 0.7 AST 28 23 ALT 29 33 Alkaline Phosphatase 118 90 C-Reactive Protein 4.2 H Total Protein 7.8 6.4 Albumin 4.2 3.2 L Globulin 3.6 3.2 Albumin/Globulin Ratio 1.10 L 1.00 L History and Physical pertinent to Admission: Course of Hospitalization: This very nice 82-year-old the gentleman with history of esophageal strictures in the past comes in with the not been able to eat fluid or solids every time he at times she has a choking sensation and was severely dehydrated. Patient was admitted to the hospital hydrated also surgery was on consult modified the barium swallow showed obstruction Dr. jayjay Baltazar brought the patient to the OR for EGD with the which really resolve the obstruction patient is stable and okay to go home on Protonix discussed the case with Dr. jayjay Baltazar patient also wants to be discharged home and not spend another night On the date of discharge, the patient was examined: Gen.: No acute distress, alert, nontoxic Heart: Regular rate and rhythm, no murmurs, clicks, gallops, or rubs Lungs: Clear to auscultation bilaterally, breathing is nonlabored Abdomen/GI: Normal tones on auscultation, soft, nontender, nondistended Musculoskeletal/extremities: No clubbing, cyanosis, or edema Vitals reviewed and are listed below Assessment and Plan: 1. As per discharge assessments above 2. Disposition: Home 3. Condition on discharge, stable and improved. 4. Diet: Advance diet as tolerated 5. Activities: resume normal activities 6. Follow-Up: 1. PCP 2. Dr. jayjay Baltazar 7. Medications at the Time of Discharge: Home Medications Medication Instructions Recorded Confirmed Type tamsulosin 0.4 mg capsule 0.4 mg PO QHS #90 cap 06/08/17 05/20/18 Rx Pantoprazole Sodium [Protonix] 40 mg PO BID #60 tablet 05/21/18 Rx 8. Time, care, counseling and coordination of care for this discharge is greater than 30 minutes. Exam - Vitals Vital Signs: Vital Signs Temperature 98.8 F Temperature Source Temporal Artery Scan Pulse Rate [Pulse Oximeter] 68 Pulse Rate 70 Respiratory Rate 18 Blood Pressure [Right Arm] 143/58 Blood Pressure [Left Arm] 141/61 Blood Pressure 148/79 Pulse Ox 92 Oxygen Delivery Method Room Air Height 5 ft 8 in Weight 119 lb 12.8 oz Patient Problems - Patient Problem List (1) Dehydration Current Visit: Yes Status: Acute Code(s): E86.0 - Dehydration Category: Medical (2) Vomiting Current Visit: Yes Status: Acute Code(s): R11.10 - Vomiting, unspecified Category: Medical (3) Dysphagia Current Visit: Yes Status: Acute Code(s): R13.10 - Dysphagia, unspecified Category: Medical
[2018-05-21 19:04] VITALS: TEMP 97.8
[2018-05-21 19:06] VITALS: BP 135/73; RESP 16; O2SAT 96
[2018-05-21] MEDS ORDERED: PANTOPRAZOLE 40 MG TABLET PO SCH (21:00)
--- NOTE | 2018-05-22 11:37 | OTI REPORT ---
Thank you for the referral of True Tillman. He was seen on 05/21/18 for an occupational therapy swallow evaluation. SUBJECTIVE: The patient is an [id number] who is being seen secondary to having difficulties swallowing. He reports that he throws up sometimes. He reports that he has had some abdominal pain and vomiting. 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 He has a history of esophageal strictures and multiple dilations. He feels like he is getting dehydrated because of the vomiting. 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 Taylor's report. He reports in the last seven years he has had 6-7 dilations. He said he cannot eat steak no matter how much he cuts it up. He chokes as soon as he eats, and then he starts choking on water. PAST MEDICAL HISTORY: Past medical history can be found in the patient's medical record. OBJECTIVE FINDINGS: Pre-Swallow Assessment: Alertness and responsiveness: The patient was alert and responsive. Reliable responses: The patient appeared to have reliable yes and no responses. Facial symmetry: The patient demonstrated good facial symmetry. Volitional dry swallow: WNL Following directions: The patient was able to follow two step directions. Cough: The patient's cough was slightly raspy. Nutrition and intake method for the last 24-hours: Intake has been very minimal. He states he basically has not been able to eat since last Monday and he has been continually throwing up since last Monday. He states it has become increasingly worse in the last two weeks. Oxygen: The patient is not on oxygen. Secretions: The patient is able to handle his own secretions. Dentitions: The patient does have top dentures but does not have bottom dentures. Voice quality: Voice quality was slightly weak. Head control/Neck range of motion: WNL Lip control: Lip control was good and the patient demonstrated minimal drooling. Lingual function: The patient had good range of motion, strength, and coordination of the tongue. Sensation: Buccal, labial, and lingual region were within normal limits. Gag reflex: The patient's gag reflex was hyper-active. General observations: The patient has become very weak. He had a little bit of difficulty coming from supine to sitting in bed and then transferring to the chair. He states he does have a lot of weakness secondary to not being able to eat and get nutrition. Feeding Assessment: Today the patient had an intact automatic swallow. Laryngeal elevation was slightly impaired at 75%. Today we started out with thin liquid. The patient was able to swallow water x2 with small sips without external signs of aspiration. We then tried applesauce. The patient required increased time to form a bolus. Swallow transit time was poor. Number of swallows was 3-4 for one bite of applesauce. Laryngeal elevation was 75% of normal. He was negative for coughing with applesauce. Next we tried a bite of peach. The patient had poor bolus control. Swallow transit time increased. Number of swallows was approximately 6. Laryngeal elevation was at 75%. He did start coughing and he stated like he felt like he could feel it in the middle of his stomach and he wanted to throw it up. We then tried some water and the patient did cough. We then went to nectar thickened liquid and he really coughed after taking a few sips of this. We were not able to attempt honey thickened liquid because the patient was coughing. He ended up coughing up and throwing up a lot of mucous and spit that was clear. He had approximately four ounces of spit in an emesis bag after all of this and was gagging. The patient is able to physically self feed; however, he did demonstrate choking. It is very questionable whether or not the patient is able to protect his airway. His swallow is probably not efficient enough for PO intake at this time. RECOMMENDATIONS: 1. The patient needs to get in for a modified barium swallow study as soon as possible as there are pharyngeal concerns and lower esophageal concerns. Dr. Taylor was informed of the results and he agreed to order the MBS. The patient's nurse was educated as well. We did schedule the patient for a MBS at 1:30 PM today. SWALLOW GOALS:: Patient will be able to eat a normal diet without external signs of aspiration/regurgitation/difficulties with the swallow. INITIAL TREATMENT: Treatment today consisted of the swallow evaluation only. HUONG
--- NOTE | 2018-05-22 11:47 | OTI REPORT ---
Thank you for the referral of True Tillman. He was seen on 05/21/18 for a modified barium swallow study. SUBJECTIVE: The patient is an 82-year-old male who was referred for a modified barium swallow study secondary to the bedside swallow evaluation that was performed this morning. PAST MEDICAL HISTORY: Past medical history can be found in the patient's medical record. OBJECTIVE FINDINGS: Today the patient sat in a lateral view. We started with honey thickened liquid secondary to his coughing and choking on thin liquids earlier this morning. We then went to nectar thickened liquids and thin liquids. The patient had good lip closure. He had a slight decrease in AP transit. He does pocket and hold. He had slight premature spillage from the oral region down the throat. He had good tongue based retraction. He did demonstrate stasis and coating. He had a delayed swallow trigger. The patient does piecemeal, even though this was liquid. He tends to do several swallows per liquid. He was negative for oral and nasal regurgitation. He had decreased hyoid/thyroid approximation. He had hyoid protraction and a slight decrease in laryngeal elevation with the nectar thickened and thin liquid. He had severe penetration of the piriformis sinuses and valleculae with all the liquids. He was negative for aspiration, but is high risk for aspiration secondary to all of the pooling that he has. He has decreased pharyngeal squeeze and severe vallecular and piriformis pooling and residuals on both sides. He demonstrated decent UES opening and cricopharyngeal bar. He does demonstrate esophageal/pharyngeal reflux and has a severe decrease in the LES opening. He is demonstrating stasis and dysmotility and decreased coordination of the esophageal region. He then sat in a side view and the doctor assessed his lower esophageal region. We did set him in a front facing view/anterior view for the peaches to see if he would clear. He has symmetry of the piriformis sinuses but has severe pooling. ASSESSMENT: Dr. Taylor and Dr. Santos were both present when the patient arrived back onto the third floor. The results were discussed and Dr. Santos is going to try to do a lower esophageal dilation and GED study and look at this through a scope. The patient has severe decrease in LES opening; in fact, we did not see any food or liquid surpass the LES region into the stomach. The patient would benefit from further diagnostics from Dr. Santos. This definitely takes precedence; however, the patient does have piriformis and vallecular pooling and pharyngeal weakness when clearing foods. Eventually after his tests and more than likely surgery are done, he may benefit from skilled occupational therapy to work on vital-stim training in order to increase his pharyngeal musculature and to decrease the chance of the UES being dilated again. TREATMENT PLAN: We will continue to follow this case. Once the patient gets the LES taken care of, we may discuss use of swallow strengthening for his dysphagia and to increase the musculature of his swallow mechanism. INITIAL TREATMENT: Treatment today consisted of the modified barium swallow study only. MTDD
--- NOTE | 2018-05-22 12:01 | DI ---
XR ESOPHAGRAM 05/21/2018 4:35 PM History: [facility] [place] ^Dysphgia ^Modified Comparison: CT abdomen/pelvis 05/20/2018. Procedure: Cine images of the pharynx were obtained in the AP and lateral projections while swallowin g variable thickness is of barium. The patient tolerated the procedure well and left without incident . Findings: The patient demonstrated laryngeal penetration without ben aspiration. He was able to swa llow thick barium and peaches, but experienced immediate emesis after ingestion of thin barium. The e sophagus was moderately distended with a colon of contrast and air. The column extended to the expect ed level of the gastroesophageal junction where there was abrupt termination with only a thin line of contrast extending through the gastroesophageal junction which could represent a "bird's beak". On o ne image, there is suggestion of a reverse meniscus sign. Impression: 1. Laryngeal penetration without ben aspiration. 2. The esophagus was moderately distended with a column of contrast and air. There was abrupt termina tion of the column of contrast at the expected level of the gastroesophageal junction with a "bird's beak" as well as suggestion of a reverse meniscus sign. Differential considerations include stricture in the setting of achalasia or carcinoma, although the reverse meniscus sign can be seen in the sett ing of an impacted foreign body/food bolus. Correlation with direct visualization is recommended.
== END 2018-05-21 17:11 | disposition home or self-care (01) ==
LOC: MED/SURG 16:40 → ER 16:40 → MED/SURG 20:55 → OPS 05-21 15:09 → MED/SURG 05-21 16:17
PROVIDERS: ADMIT Internal Medicine; ATTEND Internal Medicine